=== PATIENT | male | born 1970 ===

== ENCOUNTER → 2020-04-19 18:01 | Outpatient (CLI) | payer OTHER, MEDICAID, SELFPAY ==
[2020-04-19 19:03] LABS: COVID19 -Nasal RAPID Negative (Negative)
== END ==
PROVIDERS: Family Provider Family Medicine; Visit Provider Nurse Practitioner
DX: Z20.822 Contact with and (suspected) exposure to COVID-19 (principal)
CPT/HCPCS: 87635

== ENCOUNTER 2020-10-15 20:36 | Emergency (ER) | payer OTHER, MEDICAID, SELFPAY | END 2020-10-15 20:45 | disposition left against medical advice (07) | LOC: ED 21:05 | PROVIDERS: Emergency Provider Emergency Medicine; Family Provider Family Medicine ==